=== PATIENT | male | born 1970 | race Caucasian/White ===

== ENCOUNTER 2021-09-06 07:36 | Outpatient (CLI) | payer MEDICAID ==
[~2021-09-06] VITALS: Ht 180.3 cm; Wt 107.0 kg
[2021-09-06 08:14] VITALS: BP 128/89; PULSE 61; TEMP 97.8
[2021-09-06] MEDS ORDERED: LIPITOR 40MG TA40 MG PO (08:20)
[2021-09-06] MEDS ORDERED: ASPIRIN 32325 MG/TAB PO (08:20)
[2021-09-06] MEDS ORDERED: NORVASC 10MG10 MG PO (08:20)
[2021-09-06] MEDS ORDERED: COREG 6.256.25 MG/TA PO (08:21)
[2021-09-06] MEDS ORDERED: AMARYL 2MG T2 MG/TAB PO (08:21)
[2021-09-06] MEDS ORDERED: FLONASEALLERGY NS (08:21)
[2021-09-06] MEDS ORDERED: CANA300T PO (08:21)
[2021-09-06] MEDS ORDERED: GLUCOPHAGE500 MG/TAB PO (08:22)
[2021-09-06] MEDS ORDERED: PRINZIDE 12.5 M1 TA1 PO (08:22)
[2021-09-06] MEDS ORDERED: LYRICA 50MG CAP50 MG PO (08:22)
[2021-09-06 11:30] VITALS: BP 140/86; PULSE 55
--- NOTE | 2021-09-06 18:01 | NUR ---
DC instructions reviewed with pt and , both express understanding. Dressing over loop recorder site remains clean, dry and intact. Pt steady on feet. He is escorted out to entrance with steady gait.
== END 2021-09-06 14:00 | disposition home or self-care (01) ==
LOC: COL.CAR 07:36
DX: R55 Syncope and collapse (principal); I10 Essential (primary) hypertension; E78.49 Other hyperlipidemia; F17.210 Nicotine dependence, cigarettes, uncomplicated; Z86.73 Personal history of transient ischemic attack (TIA), and cerebral infarction without residual deficits
CPT/HCPCS: 27886; C1764